=== PATIENT | female | born 1985 | race American Indian/Alaskan Native ===

== ENCOUNTER 2017-09-30 17:02 | Emergency (ER) | payer MEDICAID ==
--- NOTE | 2017-09-30 18:22 | EDM.PDOC ---
Scribed by Yamila Trevizo 09/30/17 1828 for Michi Dickey PA <Michi Dickey - Last Filed: 09/30/17 19:03> ED HPI GENERAL MEDICAL PROBLEM - General Chief Complaint: Genitourinary Problem Stated Complaint: UTI- AMBULANCE Time Seen by Provider: 09/30/17 17:45 Source of Information: Reports: Patient, RN, RN Notes Reviewed History Limitations: Reports: No Limitations - History of Present Illness INITIAL COMMENTS - FREE TEXT/NARRATIVE: Patient presents to ER with nausea and vomiting yesterday and x1 today. She has headaches and fever. She is taking Ibuprofen this a.m. No clinic visit. Onset Date: 09/29/17 Duration: Getting Worse Quality: Reports: Ache Severity: Severe Improves with: Reports: None Worsens with: Reports: None Associated Symptoms: Reports: No Other Symptoms Right Flank Pain Score (Numeric/FACES): 5 - Related Data Allergies Allergy/AdvReac Type Severity Reaction Status Date / Time No Known Allergies Allergy Verified 09/30/17 17:10 Home Meds: Home Meds . [No Known Home Meds] 09/30/17 [History] Past Medical History - Past Health History Medical/Surgical History: Denies Medical/Surgical History HEENT History: Reports: None Genitourinary History: Reports: Hydronephrosis, Pyelonephritis, Renal Calculus, Other (See Below) Other Genitourinary History: Nephrostomy placed 11-16-2015 Other OB/BYN History: fallopian surgery and 3 NVD - Past Surgical History Male Surgical History: Reports: Kidney Stone Extraction, Renal Calculus, Ureteral Stent Social & Family History - Family History Family Medical History: Noncontributory - Living Situation & Occupation Living situation: Reports: with Significant Other Occupation: Employed ED ROS GENERAL - Review of Systems Review Of Systems: ROS reveals no pertinent complaints other than HPI. ED EXAM, RENAL/ - Physical Exam Exam: See Below Exam Limited By: No Limitations General Appearance: Alert, WD/WN, No Apparent Distress Eye Exam: Bilateral Eye: Normal Inspection Ears: Normal External Exam Nose: Normal Inspection, Normal Mucosa, No Blood Throat/Mouth: Normal Inspection, Normal Lips, Normal Teeth, Normal Gums, Normal Oropharynx, Normal Voice, No Airway Compromise Head: Atraumatic, Normocephalic Neck: Normal Inspection, Supple, Non-Tender, Full Range of Motion Respiratory/Chest: No Respiratory Distress, Lungs Clear, Normal Breath Sounds, No Accessory Muscle Use, Chest Non-Tender Cardiovascular: Normal Peripheral Pulses, Regular Rate, Rhythm, No Edema, No Gallop, No JVD, No Murmur, No Rub GI/Abdominal: Other (lower abdominal pain) (Female) Exam: Deferred Rectal (Female) Exam: Deferred Back Exam: Other (left flank pain) Extremities: Normal Inspection, Normal Range of Motion, Non-Tender, Normal Capillary Refill, No Pedal Edema Neurological: Alert, Oriented, CN II-XII Intact, Normal Cognition, Normal Gait, Normal Reflexes, No Motor/Sensory Deficits Psychiatric: Normal Affect, Normal Mood Skin Exam: Warm, Dry, Intact, Normal Color, No Rash Lymphatic: No Adenopathy Course - Vital Signs Last Recorded V/S: Last Vital Signs Temp 98.3 F 09/30/17 21:17 Pulse 91 09/30/17 21:17 Resp 18 09/30/17 21:17 BP 117/76 09/30/17 21:17 Pulse Ox 98 09/30/17 21:17 - Orders/Labs/Meds Orders: Active Orders 24 hr Category Date Time Status CULTURE BLOOD [BC] Stat Lab 09/30/17 18:28 Results CULTURE BLOOD [BC] Stat Lab 09/30/17 18:31 Results CULTURE URINE [RM] Stat Lab 09/30/17 17:06 Received TRANSFUSION REACTION [BBK] Stat Lab 09/30/17 21:30 Ordered TX RX EXTENDED WORKUP [BBK] Stat Lab 09/30/17 18:31 Results Blood Culture x2 Reflex Set [OM.PC] Stat Oth 09/30/17 18:14 Ordered Labs: Laboratory Tests 09/30/17 09/30/17 09/30/17 Range/Units 17:06 17:06 17:06 WBC (5.0-10.0) 10^3/uL RBC (4.2-5.4) 10^6/uL Hgb (12.0-16.0) g/dL Hct (37.0-47.0) % MCV (80-100) fL MCH (27.0-34.0) pg MCHC (33.0-35.0) g/dL Plt Count (150-450) 10^3/uL Neut % (Auto) (42.2-75.2) % Lymph % (Auto) (20.5-50.1) % [place] % (Auto) (2-8) % Eos % (Auto) (1.0-3.0) % Baso % (Auto) (0.0-1.0) % Add Manual Diff Neutrophils % (Manual) (42-75) % Band Neutrophils % % Lymphocytes % (Manual) (20-50) % Monocytes % (Manual) (2-8) % Platelet Estimate Hypochromasia Ovalocytes Sodium (135-145) mmol/L Potassium (3.6-5.0) mmol/L Chloride (101-111) mmol/L Carbon Dioxide (21.0-31.0) mmol/L Anion Gap BUN (7-18) mg/dL Creatinine (0.6-1.3) mg/dL Est Cr Clr Drug Dosing mL/min Estimated GFR (MDRD) BUN/Creatinine Ratio Glucose (74-105) mg/dL Lactic Acid (0.5-2.2) mmol/L Calcium (8.4-10.2) mg/dl Total Bilirubin (0.2-1.0) mg/dL AST (10-42) IU/L ALT (10-60) IU/L Alkaline Phosphatase (42-121) IU/L Total Protein (6.7-8.2) g/dl Albumin (3.2-5.5) g/dl Globulin Albumin/Globulin Ratio Urine Color Yellow (YELLOW) Urine Appearance Turbid (CLEAR) Urine pH 7.0 (5.0-9.0) Ur Specific [place] 1.020 (1.005-1.030) Urine Protein >=300 H (NEGATIVE) Urine Glucose (UA) Negative (NEGATIVE) Urine Ketones Negative (NEGATIVE) Urine Occult Blood Moderate H (NEGATIVE) Urine Nitrite Negative (NEGATIVE) Urine Bilirubin Negative (NEGATIVE) Urine Urobilinogen 0.2 (0.2-1.0) mg/dL Ur Leukocyte Esterase Large H (NEGATIVE) Urine RBC 10-20 H /HPF Urine WBC Packed H (0-5/HPF) /HPF Ur Epithelial Cells Few /HPF Amorphous Sediment Few (0/HPF) /HPF Urine Bacteria Many H (0-FEW/HPF) /HPF Urine HCG, Qual Negative Urine Opiates Screen Negative (NEGATIVE) Ur Oxycodone Screen Negative (NEGATIVE) Urine Methadone Screen Negative (NEGATIVE) Ur Barbiturates Screen Negative (NEGATIVE) U Tricyclic Antidepress Negative (NEGATIVE) Ur Phencyclidine Scrn Negative (NEGATIVE) Ur Amphetamine Screen Negative (NEGATIVE) U Methamphetamines Scrn Negative (NEGATIVE) Urine MDMA Screen Negative (NEGATIVE) U Benzodiazepines Scrn Negative (NEGATIVE) Urine Cocaine Screen Negative (NEGATIVE) U Marijuana (THC) Screen Negative (NEGATIVE) Blood Type Gel Antibody Screen Crossmatch Post-Tx Product Bld Type Tx React Gram Stain Pre-Trans Blood Type Pre-Tx Ab Screen (Gel) Pre-Trans XM Immed Spin Pre-Trans Xmatch [facility] 09/30/17 09/30/17 09/30/17 Range/Units 17:58 17:58 17:58 WBC 63.9 H* (5.0-10.0) 10^3/uL RBC 3.63 L (4.2-5.4) 10^6/uL Hgb 6.7 L* D (12.0-16.0) g/dL Hct 22.9 L (37.0-47.0) % MCV 63.1 L D (80-100) fL MCH 18.5 L (27.0-34.0) pg MCHC 29.3 L (33.0-35.0) g/dL Plt Count 675 H D (150-450) 10^3/uL Neut % (Auto) 93.8 H (42.2-75.2) % Lymph % (Auto) 2.1 L (20.5-50.1) % [place] % (Auto) 4.1 (2-8) % Eos % (Auto) 0.0 L (1.0-3.0) % Baso % (Auto) 0.0 (0.0-1.0) % Add Manual Diff Yes Neutrophils % (Manual) 90 H (42-75) % Band Neutrophils % 6 % Lymphocytes % (Manual) 3 L (20-50) % Monocytes % (Manual) 1 L (2-8) % Platelet Estimate Increased Hypochromasia 1+ slight Ovalocytes 1+ slight Sodium 132 L (135-145) mmol/L Potassium 2.4 L (3.6-5.0) mmol/L Chloride 102 (101-111) mmol/L Carbon Dioxide 18.0 L (21.0-31.0) mmol/L Anion Gap 14.4 BUN 21 H (7-18) mg/dL Creatinine 2.1 H D (0.6-1.3) mg/dL Est Cr Clr Drug Dosing 38.44 mL/min Estimated GFR (MDRD) 27 BUN/Creatinine Ratio 10.00 Glucose 90 (74-105) mg/dL Lactic Acid 1.9 (0.5-2.2) mmol/L Calcium 7.3 L (8.4-10.2) mg/dl Total Bilirubin 0.4 (0.2-1.0) mg/dL AST 16 (10-42) IU/L ALT 7 L (10-60) IU/L Alkaline Phosphatase 117 (42-121) IU/L Total Protein 7.6 (6.7-8.2) g/dl Albumin 2.6 L (3.2-5.5) g/dl Globulin 5.0 Albumin/Globulin Ratio 0.52 Urine Color (YELLOW) Urine Appearance (CLEAR) Urine pH (5.0-9.0) Ur Specific [place] (1.005-1.030) Urine Protein (NEGATIVE) Urine Glucose (UA) (NEGATIVE) Urine Ketones (NEGATIVE) Urine Occult Blood (NEGATIVE) Urine Nitrite (NEGATIVE) Urine Bilirubin (NEGATIVE) Urine Urobilinogen (0.2-1.0) mg/dL Ur Leukocyte Esterase (NEGATIVE) Urine RBC /HPF Urine WBC (0-5/HPF) /HPF Ur Epithelial Cells /HPF Amorphous Sediment (0/HPF) /HPF Urine Bacteria (0-FEW/HPF) /HPF Urine HCG, Qual Urine Opiates Screen (NEGATIVE) Ur Oxycodone Screen (NEGATIVE) Urine Methadone Screen (NEGATIVE) Ur Barbiturates Screen (NEGATIVE) U Tricyclic Antidepress (NEGATIVE) Ur Phencyclidine Scrn (NEGATIVE) Ur Amphetamine Screen (NEGATIVE) U Methamphetamines Scrn (NEGATIVE) Urine MDMA Screen (NEGATIVE) U Benzodiazepines Scrn (NEGATIVE) Urine Cocaine Screen (NEGATIVE) U Marijuana (THC) Screen (NEGATIVE) Blood Type Gel Antibody Screen Crossmatch Post-Tx Product Bld Type Tx React Gram Stain Pre-Trans Blood Type Pre-Tx Ab Screen (Gel) Pre-Trans XM Immed Spin Pre-Trans Xmatch [facility] 09/30/17 09/30/17 Range/Units 18:31 18:31 WBC (5.0-10.0) 10^3/uL RBC (4.2-5.4) 10^6/uL Hgb (12.0-16.0) g/dL Hct (37.0-47.0) % MCV (80-100) fL MCH (27.0-34.0) pg MCHC (33.0-35.0) g/dL Plt Count (150-450) 10^3/uL Neut % (Auto) (42.2-75.2) % Lymph % (Auto) (20.5-50.1) % [place] % (Auto) (2-8) % Eos % (Auto) (1.0-3.0) % Baso % (Auto) (0.0-1.0) % Add Manual Diff Neutrophils % (Manual) (42-75) % Band Neutrophils % % Lymphocytes % (Manual) (20-50) % Monocytes % (Manual) (2-8) % Platelet Estimate Hypochromasia Ovalocytes Sodium (135-145) mmol/L Potassium (3.6-5.0) mmol/L Chloride (101-111) mmol/L Carbon Dioxide (21.0-31.0) mmol/L Anion Gap BUN (7-18) mg/dL Creatinine (0.6-1.3) mg/dL Est Cr Clr Drug Dosing mL/min Estimated GFR (MDRD) BUN/Creatinine Ratio Glucose (74-105) mg/dL Lactic Acid (0.5-2.2) mmol/L Calcium (8.4-10.2) mg/dl Total Bilirubin (0.2-1.0) mg/dL AST (10-42) IU/L ALT (10-60) IU/L Alkaline Phosphatase (42-121) IU/L Total Protein (6.7-8.2) g/dl Albumin (3.2-5.5) g/dl Globulin Albumin/Globulin Ratio Urine Color (YELLOW) Urine Appearance (CLEAR) Urine pH (5.0-9.0) Ur Specific [place] (1.005-1.030) Urine Protein (NEGATIVE) Urine Glucose (UA) (NEGATIVE) Urine Ketones (NEGATIVE) Urine Occult Blood (NEGATIVE) Urine Nitrite (NEGATIVE) Urine Bilirubin (NEGATIVE) Urine Urobilinogen (0.2-1.0) mg/dL Ur Leukocyte Esterase (NEGATIVE) Urine RBC /HPF Urine WBC (0-5/HPF) /HPF Ur Epithelial Cells /HPF Amorphous Sediment (0/HPF) /HPF Urine Bacteria (0-FEW/HPF) /HPF Urine HCG, Qual Urine Opiates Screen (NEGATIVE) Ur Oxycodone Screen (NEGATIVE) Urine Methadone Screen (NEGATIVE) Ur Barbiturates Screen (NEGATIVE) U Tricyclic Antidepress (NEGATIVE) Ur Phencyclidine Scrn (NEGATIVE) Ur Amphetamine Screen (NEGATIVE) U Methamphetamines Scrn (NEGATIVE) Urine MDMA Screen (NEGATIVE) U Benzodiazepines Scrn (NEGATIVE) Urine Cocaine Screen (NEGATIVE) U Marijuana (THC) Screen (NEGATIVE) Blood Type O POSITIVE Gel Antibody Screen Negative Crossmatch See Detail Post-Tx Product Bld Type O POSITIVE Tx React Gram Stain No organism seen. Pre-Trans Blood Type O positive Pre-Tx Ab Screen (Gel) Negative Pre-Trans XM Immed Spin Compatible Pre-Trans Xmatch [facility] Compatible Meds: Medications Discontinued Medications Generic Name Dose Route Start Last Admin Trade Name Freq PRN Reason Stop Dose Admin Ceftriaxone Sodium 1 gm 09/30/17 19:47 09/30/17 20:16 Rocephin IVPUSH 09/30/17 19:48 Not Given ONETIME ONE Ceftriaxone Sodium 2 gm 09/30/17 19:57 09/30/17 20:32 Rocephin IVPUSH 09/30/17 19:58 2 gm ONETIME ONE Administration Diphenhydramine HCl 50 mg 09/30/17 21:20 09/30/17 21:21 Benadryl IVPUSH 09/30/17 21:21 50 mg ONETIME ONE Administration Diphenhydramine HCl Confirm 09/30/17 21:20 Benadryl Administered 09/30/17 21:21 Dose 50 mg .ROUTE .STK-MED ONE Hydromorphone HCl 0.5 mg 09/30/17 18:45 09/30/17 18:54 Dilaudid IVPUSH 09/30/17 18:46 0.5 mg ONETIME ONE Administration Hydromorphone HCl 0.5 mg 09/30/17 20:23 09/30/17 20:31 Dilaudid IVPUSH 09/30/17 20:24 0.5 mg ONETIME ONE Administration Potassium Chloride 20 meq/ 100 mls @ 50 mls/hr 09/30/17 18:43 09/30/17 18:54 Premix IV 09/30/17 20:42 50 mls/hr ONETIME ONE Administration Potassium Chloride Confirm 09/30/17 18:48 09/30/17 18:51 Kcl 10 Meq In Water 100 Ml Administered 09/30/17 18:49 Not Given Dose 200 mls @ as directed .ROUTE .STK-MED ONE Ondansetron HCl 4 mg 09/30/17 20:38 09/30/17 20:41 Zofran IV 09/30/17 20:39 4 mg ONETIME ONE Administration Ondansetron HCl Confirm 09/30/17 20:39 09/30/17 20:46 Zofran Administered 09/30/17 20:40 4 mg Dose Administration 4 mg .ROUTE .STK-MED ONE Departure - Departure Disposition: DC/Tfer to [facility] Clinical Impression: Flank pain, History of calculus of kidney, Obstructive uropathy, Pyelonephritis , Enlarged gallbladder, Hypokalemia Cholelithiases Qualifiers: Cholelithiasis location: other site Biliary obstruction: without biliary obstruction Qualified Code(s): K80.80 - Other cholelithiasis without obstruction Anemia Qualifiers: Anemia type: unspecified type Qualified Code(s): D64.9 - Anemia, unspecified - Discharge Information Referrals: Maurilio Feliciano [Primary Care Provider] - Forms: ED Department Discharge - My Orders Last 24 Hours: My Active Orders 09/30/17 17:06 CULTURE URINE [RM] Stat - Assessment/Plan Last 24 Hours: My Active Orders 09/30/17 17:06 CULTURE URINE [RM] Stat <Nichol Valdez - Last Filed: 10/01/17 03:02> Course - Re-Assessments/Exams Free Text/Narrative Re-Assessment/Exam: 10/01/17 02:58 Dr Moraes accepting of patient in tranxfer. Recommendation to initiate PRBC. Reaction to first unit prior to tx. Blood products discontinued and patient givin Benadryl for itching. Vitals stable, no airway compromise. Departure - Departure Time of Disposition: 21:30 Condition: Fair I have read and agree with the documentation that has been completed regarding this visit. By signing this record, I attest that the documentation was completed in my physical presence and is an accurate record of the encounter.
[2017-09-30] MEDS ORDERED: Potassium Chloride 20 MEQ in Premix Bag 1 BAG IV ONE (18:43)
[2017-09-30] MEDS ORDERED: HYDROmorphone 0.5 MG/0.5 ML Syringe IVPUSH ONE ×2 (18:45→20:23)
[2017-09-30] MEDS ORDERED: cefTRIAXone 1 GM Vial IVPUSH ONE (19:47)
[2017-09-30] MEDS ORDERED: cefTRIAXone 2 GM Vial IVPUSH ONE (19:57)
[2017-09-30] MEDS ORDERED: Ondansetron 4 MG/2 ML SDV IV ONE (20:38)
[2017-09-30] MEDS ORDERED: Ondansetron 4 MG/2 ML SDV ONE (20:39)
[2017-09-30 21:19] VITALS: BP 117/76
[2017-09-30] MEDS ORDERED: diphenhydrAMINE 50 MG/ML SDV ONE (21:20)
[2017-09-30] MEDS ORDERED: diphenhydrAMINE 50 MG/ML SDV IVPUSH ONE (21:20)
== END 2017-09-30 21:33 ==
LOC: DL.ED 17:02
DX: N13.2 Hydronephrosis with renal and ureteral calculous obstruction (principal); E87.6 Hypokalemia; K80.80 Other cholelithiasis without obstruction; D64.9 Anemia, unspecified
CPT/HCPCS: 36415; 36430; 74176; 80053; 80305; 81001; 81025; 83605; 85025; 86850; 86900; 86901; 86920; 86922; 87040; 87086; 96365; 96366; 96374; 96375; 99285; J0696; J1170; J1200; J2405; J3480; P9016

== ENCOUNTER 2018-12-28 23:27 | Emergency (ER) | payer SELFPAY ==
[2018-12-28] MEDS ORDERED: Sodium Chloride 0.9% 1,000 ML IV ONE (23:32)
[2018-12-28] MEDS ORDERED: HYDROmorphone 1 MG/ML Syringe IVPUSH ONE ×2 (23:32→23:54)
[2018-12-28 23:33] VITALS: BP 94/75; PULSE 63
[2018-12-28] MEDS ORDERED: LORazepam 2 MG/ML Syringe IVPUSH ONE (23:41)
--- NOTE | 2018-12-28 23:41 | EDM.PDOC ---
"ED HPI GENERAL MEDICAL PROBLEM - General Chief Complaint: Abdominal Pain Stated Complaint: AMBULANCE Time Seen by Provider: 12/28/18 23:34 Source of Information: Reports: Patient, EMS History Limitations: Reports: No Limitations - History of Present Illness INITIAL COMMENTS - FREE TEXT/NARRATIVE: ED with c/o severe pain, points epigastric and left side upper and lower, Sudden onset around 7pm, last ate 4-5 pm, mac and cheese. EMS note no vomiting but dry heaves on arrival. No reported fever or chills. Denies urinary complaints, Last BM this afternoon. No flank pain, No cough, cold sx. Left Upper Abdomen Pain Score (Numeric/FACES): 10 - Related Data Allergies Allergy/AdvReac Type Severity Reaction Status Date / Time No Known Allergies Allergy Verified 12/28/18 23:46 Home Meds: Home Meds . [No Known Home Meds] 09/30/17 [History] Past Medical History - Past Health History Medical/Surgical History: Denies Medical/Surgical History HEENT History: Reports: None Genitourinary History: Reports: Hydronephrosis, Pyelonephritis, Renal Calculus, Other (See Below) Other Genitourinary History: Nephrostomy placed 11-16-2015 Other HOUSE MOVER History: fallopian surgery and 3 NVD - Past Surgical History Male Surgical History: Reports: Kidney Stone Extraction, Renal Calculus, Ureteral Stent Social & Family History - Family History Family Medical History: Noncontributory - Living Situation & Occupation Living situation: Reports: with Significant Other Occupation: Employed ED ROS GENERAL - Review of Systems Review Of Systems: ROS reveals no pertinent complaints other than HPI. ED EXAM, GI/ABD - Physical Exam Exam: See Below Exam Limited By: No Limitations General Appearance: Alert, Anxious, Moderate Distress, Thin Eyes: Bilateral: EOMI Ears: Normal External Exam Nose: Normal Mucosa Throat/Mouth: Normal Lips, Normal Voice Head: Atraumatic, Normocephalic Neck: Normal Inspection Respiratory/Chest: No Respiratory Distress Cardiovascular: Regular Rate, Rhythm, No Edema GI/Abdominal Exam: Soft, Guarding, Tender (epigastric and left upper and lower) , Abnormal Bowel Sounds (hypoactive). No: Distended, Rigid, Rebound Back Exam: No: CVA Tenderness (L), CVA Tenderness (R), Decreased Range of Motion Extremities: Normal Inspection, Normal Range of Motion Neurological: Alert, Oriented, Normal Cognition Psychiatric: Anxious Skin Exam: Warm, Dry, Intact, Pallor, Tattoo(s) Course - Vital Signs Last Recorded V/S: Last Vital Signs Temp 96.9 F 12/28/18 23:29 Pulse 63 12/28/18 23:29 Resp 19 12/28/18 23:29 BP 94/75 12/28/18 23:29 Pulse Ox 100 12/28/18 23:29 - Orders/Labs/Meds Orders: Active Orders 24 hr Category Date Time Status Abdomen Pelvis w Cont [CT] Urgent Exams 12/29/18 00:15 Taken CULTURE BLOOD [BC] Stat Lab 12/28/18 23:51 Received CULTURE URINE [RM] Stat Lab 12/29/18 01:53 Received NG [Nasogastric Orogastric Tube Insertion] [OM.PC] Oth 12/29/18 02:07 Ordered Routine Labs: Laboratory Tests 12/28/18 12/28/18 12/28/18 Range/Units 23:51 23:51 23:51 WBC 8.0 (5.0-10.0) 10^3/uL RBC 4.34 (4.2-5.4) 10^6/uL Hgb 8.5 L D (12.0-16.0) g/dL Hct 30.0 L (37.0-47.0) % MCV 69.1 L D (80-100) fL MCH 19.6 L (27.0-34.0) pg MCHC 28.3 L (33.0-35.0) g/dL Plt Count 397 D (150-450) 10^3/uL Neut % (Auto) 59.0 (42.2-75.2) % Lymph % (Auto) 29.6 (20.5-50.1) % Gilmer % (Auto) 6.8 (2-8) % Eos % (Auto) 4.3 H (1.0-3.0) % Baso % (Auto) 0.3 (0.0-1.0) % Sodium 138 (135-145) mmol/L Potassium 2.9 L (3.6-5.0) mmol/L Chloride 108 (101-111) mmol/L Carbon Dioxide 23.0 (21.0-31.0) mmol/L Anion Gap 9.9 BUN 7 (7-18) mg/dL Creatinine 0.7 D (0.6-1.3) mg/dL Est Cr Clr Drug Dosing 114.23 mL/min Estimated GFR (MDRD) > 60 BUN/Creatinine Ratio 10.00 Glucose 109 H (74-105) mg/dL Lactic Acid 2.3 H (0.5-2.2) mmol/L Calcium 8.2 L (8.4-10.2) mg/dl Total Bilirubin 0.6 (0.2-1.0) mg/dL AST 37 (10-42) IU/L ALT 39 (10-60) IU/L Alkaline Phosphatase 124 H (42-121) IU/L Total Protein 7.3 (6.7-8.2) g/dl Albumin 3.5 (3.2-5.5) g/dl Globulin 3.8 Albumin/Globulin Ratio 0.92 Amylase 72 (28-100) U/L Lipase 28 (22-51) U/L HCG, Qual Negative Urine Color (YELLOW) Urine Appearance (CLEAR) Urine pH (5.0-9.0) Ur Specific [place] (1.005-1.030) Urine Protein (NEGATIVE) Urine Glucose (UA) (NEGATIVE) Urine Ketones (NEGATIVE) Urine Occult Blood (NEGATIVE) Urine Nitrite (NEGATIVE) Urine Bilirubin (NEGATIVE) Urine Urobilinogen (0.2-1.0) mg/dL Ur Leukocyte Esterase (NEGATIVE) Urine RBC /HPF Urine WBC (0-5/HPF) /HPF Ur Epithelial Cells (NOT SEEN) /HPF Urine Bacteria (0-FEW/HPF) /HPF Urine Mucus (NOT SEEN) /LPF Urine Opiates Screen (NEGATIVE) Ur Oxycodone Screen (NEGATIVE) Urine Methadone Screen (NEGATIVE) Ur Barbiturates Screen (NEGATIVE) U Tricyclic Antidepress (NEGATIVE) Ur Phencyclidine Scrn (NEGATIVE) Ur Amphetamine Screen (NEGATIVE) U Methamphetamines Scrn (NEGATIVE) Urine MDMA Screen (NEGATIVE) U Benzodiazepines Scrn (NEGATIVE) Urine Cocaine Screen (NEGATIVE) U Marijuana (THC) Screen (NEGATIVE) 12/29/18 12/29/18 Range/Units 01:53 01:53 WBC (5.0-10.0) 10^3/uL RBC (4.2-5.4) 10^6/uL Hgb (12.0-16.0) g/dL Hct (37.0-47.0) % MCV (80-100) fL MCH (27.0-34.0) pg MCHC (33.0-35.0) g/dL Plt Count (150-450) 10^3/uL Neut % (Auto) (42.2-75.2) % Lymph % (Auto) (20.5-50.1) % Gilmer % (Auto) (2-8) % Eos % (Auto) (1.0-3.0) % Baso % (Auto) (0.0-1.0) % Sodium (135-145) mmol/L Potassium (3.6-5.0) mmol/L Chloride (101-111) mmol/L Carbon Dioxide (21.0-31.0) mmol/L Anion Gap BUN (7-18) mg/dL Creatinine (0.6-1.3) mg/dL Est Cr Clr Drug Dosing mL/min Estimated GFR (MDRD) BUN/Creatinine Ratio Glucose (74-105) mg/dL Lactic Acid (0.5-2.2) mmol/L Calcium (8.4-10.2) mg/dl Total Bilirubin (0.2-1.0) mg/dL AST (10-42) IU/L ALT (10-60) IU/L Alkaline Phosphatase (42-121) IU/L Total Protein (6.7-8.2) g/dl Albumin (3.2-5.5) g/dl Globulin Albumin/Globulin Ratio Amylase (28-100) U/L Lipase (22-51) U/L HCG, Qual Urine Color Yellow (YELLOW) Urine Appearance Cloudy (CLEAR) Urine pH 6.0 (5.0-9.0) Ur Specific [place]rard 1.015 (1.005-1.030) Urine Protein Negative (NEGATIVE) Urine Glucose (UA) Negative (NEGATIVE) Urine Ketones Trace H (NEGATIVE) Urine Occult Blood Small H (NEGATIVE) Urine Nitrite Positive H (NEGATIVE) Urine Bilirubin Negative (NEGATIVE) Urine Urobilinogen 0.2 (0.2-1.0) mg/dL Ur Leukocyte Esterase Small H (NEGATIVE) Urine RBC 5-10 H /HPF Urine WBC 10-20 H (0-5/HPF) /HPF Ur Epithelial Cells Few (NOT SEEN) /HPF Urine Bacteria Many H (0-FEW/HPF) /HPF Urine Mucus Few H (NOT SEEN) /LPF Urine Opiates Screen Positive H (NEGATIVE) Ur Oxycodone Screen Negative (NEGATIVE) Urine Methadone Screen Negative (NEGATIVE) Ur Barbiturates Screen Negative (NEGATIVE) U Tricyclic Antidepress Negative (NEGATIVE) Ur Phencyclidine Scrn Negative (NEGATIVE) Ur Amphetamine Screen Positive H (NEGATIVE) U Methamphetamines Scrn Positive H (NEGATIVE) Urine MDMA Screen Negative (NEGATIVE) U Benzodiazepines Scrn Negative (NEGATIVE) Urine Cocaine Screen Negative (NEGATIVE) U Marijuana (THC) Screen Negative (NEGATIVE) Meds: Medications Discontinued Medications Generic Name Dose Route Start Last Admin Trade Name Freq PRN Reason Stop Dose Admin Fentanyl 50 mcg 12/29/18 01:39 12/29/18 02:16 Sublimaze IVPUSH 12/29/18 01:40 50 mcg ONETIME ONE Administration Hydromorphone HCl 1 mg 12/28/18 23:32 12/28/18 23:39 Dilaudid IVPUSH 12/28/18 23:33 1 mg ONETIME ONE Administration Hydromorphone HCl 1 mg 12/28/18 23:54 12/28/18 23:58 Dilaudid IVPUSH 12/28/18 23:55 1 mg ONETIME ONE Administration Sodium Chloride 1,000 mls @ 999 mls/hr 12/28/18 23:32 12/28/18 23:39 Normal Saline IV 12/29/18 00:32 999 mls/hr .BOLUS ONE Administration Potassium Chloride 20 meq/ 100 mls @ 50 mls/hr 12/29/18 00:22 12/29/18 00:50 Premix IV 12/29/18 02:21 50 mls/hr ONETIME ONE Administration Iopamidol 75 ml 12/29/18 00:21 12/29/18 00:52 Isovue-300 (61%) IVPUSH 12/29/18 00:22 75 ml ONETIME ONE Administration Lorazepam 1 mg 12/28/18 23:41 12/28/18 23:46 Ativan IVPUSH 12/28/18 23:42 1 mg ONETIME ONE Administration Metoclopramide HCl 10 mg 12/29/18 02:19 12/29/18 02:23 Reglan IVPUSH 12/29/18 02:20 10 mg ONETIME ONE Administration - Radiology Interpretation Free Text/Narrative:: [facility] [place] [facility] Final Radiology Report Call: [phone] assistance Online chat: [email or web address] Name: NARDA WEBSTER Age: 33Years F Date: 12/29/2018 SSN: -- : [id number] Study: CT ABDOMEN/PELVIS W Requesting Physician: LIDIA CORTEZ Images: [id number] Addl Studies: Provided Clinical History: Contrast: With Contrast Medium: Iso 300 Contrast Amount: 75 mL Contrast Method: R hand 20g Page 1 of 2 PROCEDURE INFORMATION: Exam: CT Abdomen and Pelvis With Contrast Exam date and time: 12/29/2018 12:29 AM Clinical history: 33 years old, female; Other: Epigastric, left upper and lower abdomen pain TECHNIQUE: Imaging protocol: Computed tomography of the abdomen and pelvis with intravenous contrast. Radiation optimization: All CT scans at this facility use at least one of these dose optimization techniques: automated exposure control; mA and/or kV adjustment per patient size (includes targeted exams where dose is matched to clinical indication); or iterative reconstruction. Contrast material: ISO 300; Contrast volume: 75 ml; Contrast route: R HAND 20G; COMPARISON: CT Abdomen Pelvis wo Cont 09/30/2017 6:59 PM FINDINGS: Lungs: Severe bronchial wall thickening in the lingula is probably present. Liver: The liver is normal in architecture, without suspicious abnormality. Gallbladder and bile ducts: Gallbladder containing multiple gallstones. Pancreas: The pancreatic parenchyma is normal in bulk and sharply marginated. Duct is not dilated. No calcifications, masses, or abnormal fluid collections. Spleen: Spleen is normal in size. No mass or fluid collection. Adrenals: There are no adrenal masses. Kidneys and ureters: Mild right renal atrophy. Right hydroureteronephrosis. No stone. Stomach and bowel: Distal small bowel is dilated. Terminal ileum is decompressed. Cecum is dilated to 9 cm. Appendix: No evidence of appendicitis. Intraperitoneal space: There is a small amount of ascites. Mesenteric edema and distortion. Vasculature: Unremarkable. No abdominal aortic aneurysm. NARDA WEBSTER | Final Radiology Report CONFIDENTIALITY STATEMENT This report is intended only for use by the referring physician, and only in accordance with law. If you received this in error, call [phone]. Page 2 of 2 Lymph nodes: Unremarkable. No enlarged lymph nodes. Bladder: Unremarkable as visualized. Reproductive: Unremarkable as visualized. Bones/joints: Age appropriate. No acute fracture. No dislocation. Soft tissues: Unremarkable. 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 Thank you for allowing us to participate in the care of your patient. Dictated and Authenticated by: Dre Casarez MD 12/29/2018 1:36 AM Central Time ([place] & [place]) - Re-Assessments/Exams Free Text/Narrative Re-Assessment/Exam: 12/29/18 02:04 Patient resting, reports pain some better, TC Dr Parker, , Alessandro and Dr Warner Odell. Dr Hylton Surgeon accepting patient. Tx via [facility]. 12/29/18 02:27 NG placement attempted without success. 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 Abdominal pain Qualifiers: Abdominal location: unspecified location Qualified Code(s): R10.9 - Unspecified abdominal pain Anemia Qualifiers: Anemia type: unspecified type Qualified Code(s): D64.9 - Anemia, unspecified - Discharge Information *PRESCRIPTION DRUG MONITORING PROGRAM REVIEWED*: Not Applicable *COPY OF PRESCRIPTION DRUG MONITORING REPORT IN PATIENT PUSHPA: Not Applicable Forms: ED Department Discharge - My Orders Last 24 Hours: My Active Orders 12/28/18 23:51 CULTURE BLOOD [BC] Stat 12/29/18 00:15 Abdomen Pelvis w Cont [CT] Urgent 12/29/18 01:53 CULTURE URINE [RM] Stat 12/29/18 02:07 NG [Nasogastric Orogastric Tube Insertion] [OM.PC] Routine - Assessment/Plan Last 24 Hours: My Active Orders 12/28/18 23:51 CULTURE BLOOD [BC] Stat 12/29/18 00:15 Abdomen Pelvis w Cont [CT] Urgent 12/29/18 01:53 CULTURE URINE [RM] Stat 12/29/18 02:07 NG [Nasogastric Orogastric Tube Insertion] [OM.PC] Routine"
[2018-12-29 00:18] LABS: ANION GAP 9.9; CHLORIDE,CL 108 mmol/L (101-111); SODIUM,NA 138 mmol/L (135-145)
[2018-12-29] MEDS ORDERED: Iopamidol 612 MG/ML 75 ML Bottle IVPUSH ONE (00:21)
[2018-12-29] MEDS ORDERED: Potassium Chloride 20 MEQ in Premix Bag 1 BAG IV ONE (00:22)
[2018-12-29] MEDS ORDERED: fentaNYL 100 MCG/2 ML SDV IVPUSH ONE (01:39)
[2018-12-29] MEDS ORDERED: Metoclopramide 10 MG/2 ML SDV IVPUSH ONE (02:19)
== END 2018-12-29 02:30 ==
LOC: DL.ED 23:27
DX: K56.2 Volvulus (principal); R10.13 Epigastric pain; R10.12 Left upper quadrant pain; R82.5 Elevated urine levels of drugs, medicaments and biological substances; D64.9 Anemia, unspecified
CPT/HCPCS: 36415; 74177; 80053; 80305-QW; 81001; 82150; 83605; 83690; 84703; 85025; 87040; 87086; 87088; 87186; 96361; 96365; 96366; 96375; 99285-25; J1170; J2060; J2765; J3010; J3480; J7030; Q9967

== ENCOUNTER 2020-12-02 14:09 | Emergency (ER) | payer SELFPAY ==
[2020-12-02] MEDS ORDERED: GI Cocktail Oral Solution 30 ML PO ONE (15:38)
[2020-12-02] MEDS ORDERED: Iopamidol 612 MG/ML 100 ML Bottle IVPUSH ONE (16:33)
[2020-12-02] MEDS ORDERED: cefTRIAXone 1 GM in Sodium Chloride 0.9% 50 ML IV ONE (16:43)
[2020-12-02 16:50] LABS: ANION GAP 18.6 mEq/L (7-13); CHLORIDE,CL 102 mmol/L (98-107); SODIUM,NA 139 mmol/L (136-145)
--- NOTE | 2020-12-02 18:36 | EDM.PDOC ---
Scribed by Yamila Trevizo 12/02/20 1836 for Susanna Lechuga NP <Susanna Lechuga - Last Filed: 12/02/20 18:48> ED HPI GENERAL MEDICAL PROBLEM - General Chief Complaint: Abdominal Pain Stated Complaint: IN BY AMBULANCE Time Seen by Provider: 12/02/20 15:35 Source of Information: Reports: Patient, EMS, EMS Notes Reviewed, RN, RN Notes Reviewed History Limitations: Reports: No Limitations - History of Present Illness INITIAL COMMENTS - FREE TEXT/NARRATIVE: Patient is a 35-year-old female who presents to ER with complaint of epigastric pain radiating to chest that began 3 days ago. Has been taking ibuprofen for the pain. The pain is getting worse. She began vomiting last night. Specks of blood noted in emesis. She rates her pain 10/10 comes in waves. Her last bowel movement last night was normal. She is currently having menses. She had drainage from umbilicus x1 month. She has had chills, nausea and vomiting. She uses marijuana use. No fever or diarrhea. Patient quit drinking 1 year ago. She was a heavy drinker prior. She denies history of pancreatitis. She had a history of volvulus 1 year ago. Onset: Gradual Duration: Getting Worse Location: Reports: Abdomen Quality: Reports: Ache Severity: Severe Improves with: Reports: None Worsens with: Reports: None Associated Symptoms: Reports: No Other Symptoms Abdomen Pain Score (Numeric/FACES): 7 - Related Data Allergies Allergy/AdvReac Type Severity Reaction Status Date / Time No Known Allergies Allergy Verified 12/28/18 23:46 Home Meds: Home Meds . 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 - Past Surgical History GI Surgical History: Reports: Small Bowel Social & Family History - Family History Family Medical History: No Pertinent Family History - Tobacco Use Tobacco Use Status *Q: Current Every Day Tobacco User Years of Tobacco use: 20 Packs/Tins Daily: 1 - Caffeine Use Caffeine Use: Reports: Coffee, Soda - Recreational Drug Use Recreational Drug Use: Yes Recreational Drug Type: Reports: Marijuana/Hashish - Living Situation & Occupation Living situation: Reports: with Significant Other Occupation: Employed ED ROS GENERAL - Review of Systems Review Of Systems: Comprehensive ROS is negative, except as noted in HPI. ED EXAM, GI/ABD - Physical Exam Exam: See Below Exam Limited By: No Limitations General Appearance: Alert, WD/WN, No Apparent Distress Eyes: Bilateral: Normal Appearance Ears: Normal External Exam, Normal Canal, Hearing Grossly Normal, Normal TMs Nose: Normal Inspection, Normal Mucosa, No Blood Throat/Mouth: Normal Inspection, Normal Lips, Normal Teeth, Normal Gums, Normal Oropharynx, Normal Voice, No Airway Compromise Head: Atraumatic, Normocephalic Neck: Normal Inspection, Supple, Non-Tender, Full Range of Motion Respiratory/Chest: No Respiratory Distress, Lungs Clear, Normal Breath Sounds, No Accessory Muscle Use, Chest Non-Tender Cardiovascular: Normal Peripheral Pulses, Regular Rate, Rhythm, No Edema, No Gallop, No JVD, No Murmur, No Rub GI/Abdominal Exam: Tender (generalized) (Female) Exam: Deferred Rectal (Female) Exam: Deferred Back Exam: Normal Inspection, Full Range of Motion, NT Extremities: Normal Inspection, Normal Range of Motion, Non-Tender, Normal Capillary Refill, No Pedal Edema Neurological: Alert, Oriented, CN II-XII Intact, Normal Cognition, Normal Gait, Normal Reflexes, No Motor/Sensory Deficits Psychiatric: Normal Affect, Normal Mood Skin Exam: Warm, Dry, Intact, Normal Color, No Rash Lymphatic: No Adenopathy Course - Radiology Interpretation Free Text/Narrative:: CT Abdomen/Pelvis with contrast: PROCEDURE INFORMATION: Exam: CT Abdomen And Pelvis With Contrast Exam date and time: 12/02/2020 4:59 PM Age: 35 years old Clinical indication: Other: Pain; Additional info: HX cecum volvulus, hgb 5.2 TECHNIQUE: Imaging protocol: Computed tomography of the abdomen and pelvis with contrast. Radiation optimization: All CT scans at this facility use at least one of these dose optimization techniques: automated exposure control; mA and/or kV adjustment per patient size (includes targeted exams where dose is matched to clinical indication); or iterative reconstruction. Contrast material: [id number]; Contrast volume: 75 ml; Contrast route: INTRAVENOUS (IV); COMPARISON: Prior CT abdomen and pelvis of 12/29/2018 FINDINGS: Lungs: No significant abnormality in the visualized lung bases. Liver: No significant abnormality. Gallbladder and bile ducts: Multiple large radiolucent gallstones, filling the gallbladder lumen. Mild gallbladder dilatation. No CT evidence of acute cholecystitis. Pancreas: No significant abnormality. Spleen: No significant abnormality. Adrenal glands: No significant abnormality. Kidneys and ureters: Right renal scarring and atrophy. Simple-appearing low density lesion in the right kidney, most likely a benign renal cyst. No followup is necessary, based on the imaging findings. See comment below. Tiny, nonobstructing left renal stone. Stomach and bowel: Best seen on image 21 of series 3, there is a 1.4 cm round collection of air in the left abdomen. This abuts the distal stomach superiorly, and is suspicious for a distal gastric ulcer. There is abnormal infiltration of the adjacent fat and nearby gastric wall thickening. Findings are highly suspicious for an inflamed gastric ulcer. No free air seen to suggest a jesus gastric perforation. Evidence of prior right hemicolectomy, with an enterocolic anastomosis in the left abdomen. No evidence of significant bowel obstruction. Appendix: Surgically removed. Intraperitoneal space: Tiny amount of free fluid in the cul-de-sac. This is most likely physiologic in nature. No evidence of free air. Vasculature: No acute abnormality. Lymph nodes: No evidence of diffuse pathologic lymphadenopathy. Urinary bladder: Mild, diffuse bladder wall thickening. Reproductive: 2 cm lesion with a thin, enhancing and collapsed soft tissue rim in the left ovary. This has an appearance suggestive of a recently ruptured/involuting ovarian cyst, such as a corpus luteal cyst. This is likely an incidental finding. Followup pelvic ultrasound as clinically indicated. Bones/joints: Bony structures appear demineralized. Soft tissues: No acute abnormality. IMPRESSION: 1. Findings highly suspicious for an inflamed 1.4 cm distal gastric ulcer. No free air to suggest a gastric perforation. 2. Mild bladder wall thickening. This is a nonspecific finding, but can be seen with cystitis. 3. Otherwise, no significant acute abnormality. 4. Stone-filled gallbladder, with no evidence of acute cholecystitis. 5. See below for remaining findings. COMMENTS: Consistent with the [employer]'s Incidental Findings Committee white paper (J Am Zaira Radiol 2018): Any incidental renal lesion less than 1 cm or classified as too small to characterize, or any incidental cystic renal lesion characterized as simple- appearing, is likely benign. No follow-up imaging is recommended for these lesions per consensus recommendations based on imaging criteria. Thank you for allowing us to participate in the care of your patient. Dictated and Authenticated by: Nelly Cristobal MD 12/02/2020 6:34 PM Central Time ([place] & [place]) See rad report Departure - Departure Disposition: DC/Tfer to [facility] 02 Clinical Impression: GI bleed Qualifiers: GI bleed type/associated pathology: gastric ulcer Qualified Code(s): K25.4 - Chronic or unspecified gastric ulcer with hemorrhage - Discharge Information Forms: ED Department Discharge <Irasema Sanon - Last Filed: 12/02/20 19:56> Course - Vital Signs Last Recorded V/S: Last Vital Signs Temp 98.4 F 12/02/20 18:47 Pulse 71 12/02/20 18:47 Resp 16 12/02/20 18:47 BP 145/75 H 12/02/20 18:47 Pulse Ox 100 12/02/20 14:36 - Orders/Labs/Meds Orders: Active Orders 24 hr Category Date Time Status CULTURE URINE [RM] Stat Lab 12/02/20 15:03 Received RED BLOOD CELLS LP [BBK] Stat Lab 12/02/20 16:35 Results TYPE AND SCREEN [BBK] Stat Lab 12/02/20 16:35 Results Transfuse Red Blood Cells [COMM] Stat Oth 12/02/20 16:25 Ordered Labs: Laboratory Tests 12/02/20 12/02/20 12/02/20 Range/Units 15:03 15:03 16:07 WBC 7.5 (5.0-10.0) 10^3/uL RBC 3.48 L (4.2-5.4) 10^6/uL Hgb 5.2 L* D (12.0-16.0) g/dL Hct 21.0 L (37.0-47.0) % MCV 60.3 L D (80-100) fL MCH 14.9 L (27.0-34.0) pg MCHC 24.8 L (33.0-35.0) g/dL Plt Count 264 D (150-450) 10^3/uL Neut % (Auto) 63.4 (42.2-75.2) % Lymph % (Auto) 25.5 (20.5-50.1) % Guthrie % (Auto) 6.0 (2-8) % Eos % (Auto) 4.7 H (1.0-3.0) % Baso % (Auto) 0.4 (0.0-1.0) % Sodium (136-145) mmol/L Potassium (3.5-5.1) mmol/L Chloride (98-107) mmol/L Carbon Dioxide (21-32) mmol/L Anion Gap (7-13) mEq/L BUN (7-18) mg/dL Creatinine (0.55-1.02) mg/dL Est Cr Clr Drug Dosing mL/min Estimated GFR (MDRD) BUN/Creatinine Ratio (No establ ref range) Glucose (70-99) mg/dL Calcium (8.5-10.1) mg/dL Total Bilirubin (0.2-1.0) mg/dL AST (15-37) U/L ALT (14-59) U/L Alkaline Phosphatase (46-116) U/L Total Protein (6.4-8.2) g/dL Albumin (3.4-5.0) g/dL Globulin Albumin/Globulin Ratio Urine Color Dark yellow (YELLOW) Urine Appearance Cloudy (CLEAR) Urine pH 6.0 (5.0-9.0) Ur Specific [place] 1.020 (1.005-1.030) Urine Protein 100 H (NEGATIVE) Urine Glucose (UA) Negative (NEGATIVE) Urine Ketones 15 H (NEGATIVE) Urine Occult Blood Large H (NEGATIVE) Urine Nitrite Positive H (NEGATIVE) Urine Bilirubin Negative (NEGATIVE) Urine Urobilinogen 0.2 (0.2-1.0) mg/dL Ur Leukocyte Esterase Small H (NEGATIVE) Urine RBC Packed H (0-5) /HPF Urine WBC 10-20 H (0-5/HPF) /HPF Ur Epithelial Cells Moderate H (NOT SEEN) /HPF Urine Bacteria Moderate H (0-FEW/HPF) /HPF Urine Mucus Few H (NOT SEEN) /LPF Urine HCG, Qual Negative SARS-CoV-2 RNA (TAMIKO) (NEGATIVE) Blood Type Gel Antibody Screen Crossmatch 12/02/20 12/02/20 12/02/20 Range/Units 16:07 16:35 17:49 WBC (5.0-10.0) 10^3/uL RBC (4.2-5.4) 10^6/uL Hgb (12.0-16.0) g/dL Hct (37.0-47.0) % MCV (80-100) fL MCH (27.0-34.0) pg MCHC (33.0-35.0) g/dL Plt Count (150-450) 10^3/uL Neut % (Auto) (42.2-75.2) % Lymph % (Auto) (20.5-50.1) % [place]uthrie % (Auto) (2-8) % Eos % (Auto) (1.0-3.0) % Baso % (Auto) (0.0-1.0) % Sodium 139 (136-145) mmol/L Potassium 3.6 (3.5-5.1) mmol/L Chloride 102 (98-107) mmol/L Carbon Dioxide 22 (21-32) mmol/L Anion Gap 18.6 H (7-13) mEq/L BUN 13 (7-18) mg/dL Creatinine 0.77 (0.55-1.02) mg/dL Est Cr Clr Drug Dosing 87.22 mL/min Estimated GFR (MDRD) > 60 BUN/Creatinine Ratio 16.9 (No establ ref range) Glucose 91 (70-99) mg/dL Calcium 8.4 L (8.5-10.1) mg/dL Total Bilirubin 0.6 (0.2-1.0) mg/dL AST 23 (15-37) U/L ALT 20 (14-59) U/L Alkaline Phosphatase 129 H (46-116) U/L Total Protein 7.6 (6.4-8.2) g/dL Albumin 3.3 L (3.4-5.0) g/dL Globulin 4.3 Albumin/Globulin Ratio 0.77 Urine Color (YELLOW) Urine Appearance (CLEAR) Urine pH (5.0-9.0) Ur Specific [place] (1.005-1.030) Urine Protein (NEGATIVE) Urine Glucose (UA) (NEGATIVE) Urine Ketones (NEGATIVE) Urine Occult Blood (NEGATIVE) Urine Nitrite (NEGATIVE) Urine Bilirubin (NEGATIVE) Urine Urobilinogen (0.2-1.0) mg/dL Ur Leukocyte Esterase (NEGATIVE) Urine RBC (0-5) /HPF Urine WBC (0-5/HPF) /HPF Ur Epithelial Cells (NOT SEEN) /HPF Urine Bacteria (0-FEW/HPF) /HPF Urine Mucus (NOT SEEN) /LPF Urine HCG, Qual SARS-CoV-2 RNA (TAMIKO) Negative (NEGATIVE) Blood Type O POSITIVE Gel Antibody Screen Negative Crossmatch See Detail Meds: Medications Discontinued Medications Generic Name Dose Route Start Last Admin Trade Name Freq PRN Reason Stop Dose Admin Al Hydroxide/Mg Hydroxide 30 ml 12/02/20 15:38 12/02/20 15:44 Gi Cocktail Oral Solution 30 Ml PO 12/02/20 15:39 30 ml ONETIME ONE Administration Ceftriaxone Sodium 1 gm/ 50 mls @ 100 mls/hr 12/02/20 16:43 12/02/20 17:24 Sodium Chloride IV 12/02/20 17:12 100 mls/hr ONETIME ONE Administration Iopamidol 100 ml 12/02/20 16:33 12/02/20 16:44 Iopamidol 612 Mg/Ml 100 Ml Bottle IVPUSH 12/02/20 16:34 100 ml ONETIME ONE Administration Octreotide Acetate 50 mcg 12/02/20 18:48 12/02/20 19:02 Octreotide 100 Mcg/Ml Sdv IVPUSH 12/02/20 18:49 50 mcg ONETIME ONE Administration Pantoprazole Sodium 80 mg 12/02/20 18:48 12/02/20 19:02 Pantoprazole 40 Mg Vial IVPUSH 12/02/20 18:49 80 mg .BOLUS ONE Administration Departure - Departure Time of Disposition: 19:45 Condition: Fair - Discharge Information *PRESCRIPTION DRUG MONITORING PROGRAM REVIEWED*: Not Applicable *COPY OF PRESCRIPTION DRUG MONITORING REPORT IN PATIENT PUSHPA: Not Applicable Sepsis Event Note (ED) - Focused Exam Vital Signs: Vital Signs Temp Temp Pulse Resp BP BP Pulse Ox 12/02/20 18:47 98.4 F 71 16 145/75 H 12/02/20 18:32 98.4 F 69 18 150/66 H 12/02/20 18:17 78 12/02/20 18:15 98.4 F 65 16 134/67 12/02/20 18:02 98 F 67 20 122/91 H 12/02/20 14:36 98.4 F 74 14 131/69 100 I have read and agree with the documentation that has been completed regarding this visit. By signing this record, I attest that the documentation was completed in my physical presence and is an accurate record of the encounter.
[2020-12-02] MEDS ORDERED: Octreotide 100 MCG/ML SDV IVPUSH ONE (18:48)
[2020-12-02] MEDS ORDERED: Pantoprazole 40 MG Vial IVPUSH ONE (18:48)
[2020-12-02 20:08] VITALS: BP 115/62
[2020-12-02 20:09] VITALS: PULSE 65
== END 2020-12-02 20:31 ==
LOC: DL.ED 14:09
DX: K25.4 Chronic or unspecified gastric ulcer with hemorrhage (principal); Z72.0 Tobacco use
CPT/HCPCS: 36415; 36430; 74177; 80053; 81001; 81025; 85025; 86850; 86900; 86901; 86920; 86922; 87086; 87088; 87186; 87635; 96365; 96375; 99285; A9270; C9113; J0696; J2354; P9016; Q9967; U0002

== ENCOUNTER 2021-09-09 00:12 | Emergency (ER) | payer SELFPAY ==
[2021-09-09 00:24] VITALS: BP 141/76; PULSE 85
[2021-09-09] MEDS ORDERED: cefTRIAXone 500 MG, Lidocaine 1% 1 ML IM ONE ×2 (00:29)
[2021-09-09] MEDS ORDERED: Azithromycin 250 MG Tab PO ONE (00:29)
[2021-09-11 11:47] LABS: C.TRACHOMATIS BY TMA Negative (Negative); N.GONORRHOEAE BY TMA Positive (Negative)
== END 2021-09-09 00:59 | disposition home or self-care (01) ==
LOC: DL.ED 00:12
DX: N39.0 Urinary tract infection, site not specified (principal); Z20.2 Contact with and (suspected) exposure to infections with a predominantly sexual mode of transmission
CPT/HCPCS: 81001; 81025; 87086; 87088; 87186; 87491; 87591; 96372; 99283; A9270-GY; J0696

== ENCOUNTER 2021-09-27 16:20 | Inpatient (IN) | payer SELFPAY ==
[2021-09-27 19:52] LABS: ANION GAP 14.7 mEq/L (7-13); CHLORIDE,CL 103 mmol/L (98-107); SODIUM,NA 140 mmol/L (136-145)
[2021-09-27 19:55] LABS: ESTIMATED GFR 87 mL/min (>=60)
[2021-09-27] MEDS ORDERED: Sodium Chloride 0.9% 1,000 ML IV ONE (20:03)
[2021-09-27] MEDS ORDERED: Iopamidol 612 MG/ML 100 ML Bottle IVPUSH ONE (20:19)
[2021-09-27] MEDS ORDERED: Piperacillin/Tazobactam 3.375 GM in Sodium Chloride 0.9% 100 ML IV ONE (22:57)
[2021-09-27] MEDS ORDERED: Docusate Sodium 100 MG Cap PO PRN ×2 (23:15→23:26)
[2021-09-27] MEDS ORDERED: HYDROmorphone 0.5 MG/0.5 ML Syringe IVPUSH PRN (23:15)
[2021-09-27] MEDS ORDERED: Ketorolac 30 MG/ML SDV IVPUSH PRN ×2 (23:15→23:26)
[2021-09-27] MEDS ORDERED: Acetaminophen/oxyCODONE 325-5 MG Tab PO PRN (23:15)
[2021-09-27] MEDS ORDERED: Morphine 2 MG/ML SYRINGE IVPUSH PRN ×2 (23:15→23:26)
[2021-09-27] MEDS ORDERED: Magnesium Hydroxide 400 MG/5 ML Susp 30 ML Cup PO PRN ×2 (23:15→23:26)
[2021-09-27] MEDS ORDERED: Polyethylene Glycol 3350 Powder 17 GM Packet PO PRN ×2 (23:15→23:26)
[2021-09-27] MEDS ORDERED: Zolpidem 5 MG Tab PO PRN (23:15)
[2021-09-27] MEDS ORDERED: Ondansetron 4 MG/2 ML SDV IVPUSH PRN (23:15)
[2021-09-27] MEDS ORDERED: Bisacodyl 5 MG Tab PO PRN ×2 (23:15→23:26)
[2021-09-27] MEDS ORDERED: Acetaminophen 325 MG Tab PO PRN (23:15)
[2021-09-27] MEDS ORDERED: Albuterol/Ipratropium 3.0-0.5 MG/3 ML Neb Soln NEB PRN (23:15)
[2021-09-27] MEDS ORDERED: Piperacillin/Tazobactam 3.375 GM in Sodium Chloride 0.9% 100 ML IV SCH (23:30)
[2021-09-27] MEDS ORDERED: Metoprolol Tartrate 5 MG/5 ML SDV IVPUSH PRN (23:44)
[2021-09-27] MEDS ORDERED: hydrALAZINE 20 MG/ML SDV IVPUSH PRN (23:44)
[2021-09-27] MEDS ORDERED: Dextrose 5%-0.9% NaCl 1,000 ML IV SCH (23:45)
[2021-09-27] MEDS ORDERED: LORazepam 2 MG/ML SDV IV PRN (23:50)
[2021-09-27] MEDS ORDERED: LORazepam 0.5 MG Tab PO PRN (23:50)
[2021-09-27] MEDS ORDERED: cloNIDine 0.1 MG Tab PO PRN (23:50)
[2021-09-27] MEDS ORDERED: LORazepam 2 MG/ML SDV IVPUSH PRN (23:53)
[2021-09-27] MEDS ORDERED: Bisacodyl 10 MG Supp RECTAL PRN (23:55)
[2021-09-28] MEDS: Piperacillin/Tazobactam 3.375 GM in Sodium Chloride 0.9% 100 ML IV SCH ×3 (00:51→12:08)
[2021-09-28 01:21] LABS: AMPHETAMINES,URINE POSITIVE (NEGATIVE); BARBITURATES,URINE NEGATIVE (NEGATIVE); BENZODIAZEPINE,URINE NEGATIVE (NEGATIVE); MDMA (ECSTASY), URINE NEGATIVE (NEGATIVE); METHADONE,URINE NEGATIVE (NEGATIVE); METHAMPHETAMINES,URINE POSITIVE (NEGATIVE); OPIATES,URINE NEGATIVE (NEGATIVE); OXYCODONE,URINE NEGATIVE (NEGATIVE); PHENCYCLIDINE,URINE NEGATIVE (NEGATIVE); TCA,URINE NEGATIVE (NEGATIVE)
[2021-09-28 07:11] LABS: ANION GAP 10.7 mEq/L (7-13)
[2021-09-28 12:10] VITALS: BP 101/41; PULSE 52
== END 2021-09-28 12:00 | DRG 446 ==
LOC: DL.ED 16:20 → DL.MS 23:15
PROVIDERS: ADMIT Internal Medicine; ATTEND Internal Medicine
PROC: 30233N1 Transfusion of Nonautologous Red Blood Cells into Peripheral Vein, Percutaneous Approach (ICD-10-PCS; principal; 2021-09-28)
DX: K80.00 Calculus of gallbladder with acute cholecystitis without obstruction (principal); K59.00 Constipation, unspecified; N30.91 Cystitis, unspecified with hematuria; N83.202 Unspecified ovarian cyst, left side; N83.201 Unspecified ovarian cyst, right side; Z20.822 Contact with and (suspected) exposure to COVID-19; Z96.0 Presence of urogenital implants; D50.9 Iron deficiency anemia, unspecified; D75.839 Thrombocytosis, unspecified; Z87.19 Personal history of other diseases of the digestive system; Z87.442 Personal history of urinary calculi; Z93.6 Other artificial openings of urinary tract status; Z87.891 Personal history of nicotine dependence; Z91.14 Patient's other noncompliance with medication regimen
CPT/HCPCS: 36415; 36430; 74177; 80053; 80305-QW; 80307; 81001; 81025; 83605; 83690; 83735; 85014; 85018; 85025; 85651; 86140; 86850; 86900; 86901; 86920; 86922; A9270-GY; J2543; J7030; J7042; P9016; Q9967; U0002

== ENCOUNTER 2021-10-28 23:10 | Emergency (ER) | payer SELFPAY ==
[2021-10-29] MEDS ORDERED: Sodium Chloride 0.9% 1,000 ML IV ONE (00:07)
[2021-10-29] MEDS ORDERED: Pantoprazole 80 MG in Sodium Chloride 0.9% 100 ML IV ONE (00:08)
[2021-10-29 00:15] LABS: AMPHETAMINES,URINE POSITIVE (NEGATIVE); BARBITURATES,URINE NEGATIVE (NEGATIVE); BENZODIAZEPINE,URINE NEGATIVE (NEGATIVE); MDMA (ECSTASY), URINE NEGATIVE (NEGATIVE); METHADONE,URINE NEGATIVE (NEGATIVE); METHAMPHETAMINES,URINE POSITIVE (NEGATIVE); OPIATES,URINE NEGATIVE (NEGATIVE); OXYCODONE,URINE NEGATIVE (NEGATIVE); PHENCYCLIDINE,URINE NEGATIVE (NEGATIVE); TCA,URINE NEGATIVE (NEGATIVE)
[2021-10-29 00:17] LABS: ANION GAP 12.6 mEq/L (7-13)
[2021-10-29] MEDS ORDERED: Iopamidol 612 MG/ML 100 ML Bottle IVPUSH ONE (00:27)
[2021-10-29 01:01] VITALS: BP 120/57; PULSE 72
[2021-10-29] MEDS ORDERED: Piperacillin/Tazobactam 3.375 GM in Sodium Chloride 0.9% 100 ML IV ONE (02:07)
== END 2021-10-29 02:51 ==
LOC: DL.ED 23:10
DX: K81.0 Acute cholecystitis (principal); D64.9 Anemia, unspecified; N20.0 Calculus of kidney; N28.1 Cyst of kidney, acquired; F17.210 Nicotine dependence, cigarettes, uncomplicated; Z20.822 Contact with and (suspected) exposure to COVID-19
CPT/HCPCS: 36415; 74177; 80053; 80305-QW; 80307; 81001; 81025; 83735; 85025; 96361; 96365; 96367; 99285-25; C9113; J2543; J7030; Q9967; U0002

== ENCOUNTER 2022-01-06 18:36 | Emergency (ER) | payer SELFPAY ==
[2022-01-06] MEDS ORDERED: Sodium Chloride 0.9% 1,000 ML IV ONE ×2 (19:42→20:46)
[2022-01-06] MEDS ORDERED: Ondansetron 4 MG/2 ML SDV IVPUSH ONE (19:42)
[2022-01-06] MEDS ORDERED: fentaNYL 100 MCG/2 ML SDV IVPUSH ONE ×2 (19:42→21:34)
[2022-01-06 20:38] LABS: ANION GAP 14.5 mEq/L (7-13); CHLORIDE,CL 98 mmol/L (98-107); SODIUM,NA 134 mmol/L (136-145)
[2022-01-06 20:41] LABS: ESTIMATED GFR 92 mL/min (>=60)
[2022-01-06] MEDS ORDERED: Iopamidol 612 MG/ML 100 ML Bottle IVPUSH ONE (20:46)
[2022-01-06] MEDS ORDERED: Piperacillin/Tazobactam 3.375 GM in Sodium Chloride 0.9% 100 ML IV ONE (21:33)
[2022-01-06 21:46] VITALS: BP 123/51; PULSE 82
== END 2022-01-06 22:30 | disposition home or self-care (01) ==
LOC: DL.ED 18:36
DX: K80.80 Other cholelithiasis without obstruction (principal); K59.01 Slow transit constipation; F17.210 Nicotine dependence, cigarettes, uncomplicated
CPT/HCPCS: 36415; 74177; 80053; 80307; 82150; 83605; 83690; 84703; 85025; 87040; 96361; 96365; 96375; 96376; 99284; J2405; J2543; J3010; J7030; Q9967

== ENCOUNTER 2022-01-09 14:37 | Emergency (ER) | payer SELFPAY ==
[2022-01-09] MEDS ORDERED: Sodium Chloride 0.9% 1,000 ML IV ONE (15:40)
[2022-01-09] MEDS ORDERED: Ondansetron 4 MG/2 ML SDV IVPUSH ONE ×2 (15:42→16:47)
[2022-01-09] MEDS ORDERED: HYDROmorphone 1 MG/ML Syringe IVPUSH ONE (15:43)
[2022-01-09] MEDS ORDERED: Iopamidol 612 MG/ML 100 ML Bottle IV ONE ×2 (15:44→15:47)
[2022-01-09] MEDS ORDERED: Lactulose Soln 10 GM/15 ML 30 ML UD Cup PO ONE (16:47)
[2022-01-09] MEDS ORDERED: Bisacodyl 5 MG Tab PO ONE (16:47)
[2022-02-04 14:33] LABS: ANION GAP 11.3 mEq/L (7-13); CHLORIDE,CL 99 mmol/L (98-107); ESTIMATED GFR 115 mL/min (>=60); SODIUM,NA 134 mmol/L (136-145)
[2022-02-04 14:35] LABS: PTT,PARTIAL THROMBOPLSTIN TIME 26.9 SEC (22.0-34.0)
[2022-02-04 14:40] LABS: RESPIRATORY SYNCYTIAL VIR NAA NEGATIVE (NEGATIVE)
[2022-02-04 14:41] LABS: CORONAVIRUS COVID-19 NAA POSITIVE (NEGATIVE)
== END 2022-01-09 17:04 | disposition home or self-care (01) ==
LOC: DL.ED 14:37
DX: K80.50 Calculus of bile duct without cholangitis or cholecystitis without obstruction (principal); K59.00 Constipation, unspecified; Z98.890 Other specified postprocedural states; Z20.822 Contact with and (suspected) exposure to COVID-19
CPT/HCPCS: 0241U; 36415; 74177; 80053; 80307; 81001; 82150; 83605; 83690; 85025; 85610; 85730; 96361; 96374; 96375; 96376; 99284; A9270; J1170; J2405; J7030; Q9967

== ENCOUNTER 2022-03-07 18:24 | Emergency (ER) | payer SELFPAY ==
[2022-03-07 19:40] VITALS: BP 126/103; PULSE 92
[2022-03-07] MEDS ORDERED: Sodium Chloride 0.9% 10 ML Syringe FLUSH PRN (19:51)
[2022-03-07 20:36] LABS: ANION GAP 12.8 mEq/L (7-13); CHLORIDE,CL 101 mmol/L (98-107); ESTIMATED GFR 45 mL/min (>=60); SODIUM,NA 136 mmol/L (136-145)
[2022-03-07] MEDS ORDERED: HYDROmorphone 0.5 MG/0.5 ML Syringe IVPUSH ONE (20:39)
[2022-03-07] MEDS ORDERED: Sodium Chloride 0.9% 1,000 ML IV ONE ×2 (20:58→20:59)
[2022-03-07] MEDS ORDERED: Ketorolac 30 MG/ML SDV IVPUSH ONE (21:03)
== END 2022-03-07 21:30 | disposition home or self-care (01) ==
LOC: DL.ED 18:24
DX: R10.11 Right upper quadrant pain (principal)
CPT/HCPCS: 36415; 80053; 82150; 83605; 83690; 85025; 86140; 87040; 96374; 96375; 99284; J1170; J1885; J3490

== ENCOUNTER 2022-03-08 00:23 | Emergency (ER) | payer SELFPAY | END 2022-03-08 02:12 | disposition left against medical advice (07) | LOC: DL.ED 00:23 | DX: Z53.21 Procedure and treatment not carried out due to patient leaving prior to being seen by health care provider (principal) ==

== ENCOUNTER 2022-05-15 16:35 | Emergency (ER) | payer MEDICAID, OTHER ==
[2022-05-15 16:54] VITALS: BP 131/79; PULSE 122
[2022-05-15] MEDS ORDERED: Bacitracin Oint 1 GM U/D Packet TOP ONE (17:25)
[2022-05-15] MEDS ORDERED: Clindamycin HCl 150 MG Cap PO ONE (17:26)
== END 2022-05-15 17:57 | disposition home or self-care (01) ==
LOC: DL.ED 16:35
DX: T85.79XA Infection and inflammatory reaction due to other internal prosthetic devices, implants and grafts, initial encounter (principal)
CPT/HCPCS: 87070; 99283; 99284; A9270-GY

== ENCOUNTER 2022-05-16 17:44 | Emergency (ER) | payer OTHER ==
[2022-05-16 17:58] VITALS: BP 135/88; PULSE 83
[2022-05-16 18:37] LABS: AMPHETAMINES,URINE POSITIVE (NEGATIVE); BARBITURATES,URINE NEGATIVE (NEGATIVE); BENZODIAZEPINE,URINE NEGATIVE (NEGATIVE); MDMA (ECSTASY), URINE NEGATIVE (NEGATIVE); METHADONE,URINE NEGATIVE (NEGATIVE); METHAMPHETAMINES,URINE POSITIVE (NEGATIVE); OPIATES,URINE NEGATIVE (NEGATIVE); OXYCODONE,URINE NEGATIVE (NEGATIVE); PHENCYCLIDINE,URINE NEGATIVE (NEGATIVE); TCA,URINE NEGATIVE (NEGATIVE)
[2022-05-16] MEDS ORDERED: Sodium Chloride 0.9% 10 ML Syringe FLUSH PRN (18:45)
[2022-05-16] MEDS ORDERED: Famotidine 20 MG/2 ML SDV IVPUSH ONE (18:46)
[2022-05-16] MEDS ORDERED: Sodium Chloride 0.9% 1,000 ML IV ONE (18:46)
[2022-05-16] MEDS ORDERED: Iopamidol 612 MG/ML 100 ML Bottle IVPUSH ONE (18:47)
[2022-05-16 19:06] LABS: RESPIRATORY SYNCYTIAL VIR NAA NEGATIVE (NEGATIVE)
[2022-05-16 19:39] LABS: ANION GAP 11.9 mEq/L (7-13); CHLORIDE,CL 106 mmol/L (98-107); SODIUM,NA 139 mmol/L (136-145)
[2022-05-16 19:51] LABS: ESTIMATED GFR 101 mL/min (>=60)
[2022-05-16 19:59] LABS: CORONAVIRUS COVID-19 NAA POSITIVE (NEGATIVE)
[2022-05-16] MEDS ORDERED: Piperacillin/Tazobactam 3.375 GM in Sodium Chloride 0.9% 100 ML IV ONE (20:38)
[2022-05-16] MEDS ORDERED: fentaNYL 100 MCG/2 ML SDV IVPUSH ONE (20:49)
== END 2022-05-16 21:25 ==
LOC: DL.ED 17:44
DX: L02.211 Cutaneous abscess of abdominal wall (principal); K21.9 Gastro-esophageal reflux disease without esophagitis; Z72.0 Tobacco use
CPT/HCPCS: 0241U; 36415; 74177; 80053; 80305-QW; 81001; 81025; 82150; 83540; 83605; 83690; 85025; 86140; 87040; 96361; 96365; 96375; 99284; 99285-25; J2543; J3370; J3490; J7030; J7050; Q9967

== ENCOUNTER 2022-06-29 12:23 | Emergency (ER) | payer OTHER ==
[2022-06-29 12:58] VITALS: PULSE 68
[2022-06-29 13:12] VITALS: BP 133/61
== END 2022-06-29 13:04 | disposition home or self-care (01) ==
LOC: DL.ED 12:23
DX: R10.12 Left upper quadrant pain (principal); Z86.16 Personal history of COVID-19; Z88.8 Allergy status to other drugs, medicaments and biological substances; Z98.890 Other specified postprocedural states
CPT/HCPCS: 99282; 99283

== ENCOUNTER 2022-09-02 18:17 | Emergency (ER) | payer MEDICAID | END 2022-09-02 18:24 | disposition left against medical advice (07) | LOC: DL.ED 18:17 | DX: Z53.21 Procedure and treatment not carried out due to patient leaving prior to being seen by health care provider (principal) ==

== ENCOUNTER 2024-12-29 23:48 | Emergency (ER) | payer MEDICAID ==
[2024-12-30] MEDS: Take Home: Amoxicillin/Clavulanate K 875-125 MG Tab, 6 Tab Pack PO ONE (00:49)
[2024-12-30] MEDS ORDERED: Lidocaine 2% Viscous Solution 15 ML UD ONE (00:51)
[2024-12-30] MEDS: Lidocaine 2% Viscous Solution 15 ML UD PO ONE (00:51)
[2024-12-30 03:11] VITALS: BP 102/55; PULSE 72
== END 2024-12-30 00:55 | disposition home or self-care (01) ==
LOC: DL.ED 23:48
DX: K04.7 Periapical abscess without sinus (principal); Z88.6 Allergy status to analgesic agent; Z86.16 Personal history of COVID-19
CPT/HCPCS: 99282; 99283; A9270; J3490

== ENCOUNTER 2024-12-31 14:36 | Inpatient (IN) | payer MEDICAID ==
[2024-12-31 15:28] LABS: PLATELET COUNT,PLT 680 10^3/uL (150-450); RED BLOOD CELL COUNT 3.60 10^6/uL (4.2-5.4); WHITE BLOOD CELL COUNT,WBC 11.4 10^3/uL (5.0-10.0)
[2024-12-31 15:47] LABS: ALANINE AMINOTRANSFERASE,ALT 9 U/L (14-59); ASPARTATE AMNIOTRANSFERASE,AST 12 U/L (15-37); BILIRUBIN TOTAL 0.6 mg/dL (0.2-1.0); BLOOD UREA NITROGEN,BUN 6 mg/dL (7-18); CARBON DIOXIDE,CO2 27 mmol/L (21-32); CHLORIDE,CL 105 mmol/L (98-107); CREATININE 0.53 mg/dL (0.55-1.02); GLUCOSE RANDOM 100 mg/dL (70-99); POTASSIUM,K 4.4 mmol/L (3.5-5.1); PROTEIN TOTAL,TP 7.9 g/dL (6.4-8.2); SODIUM,NA 138 mmol/L (136-145)
[2024-12-31 15:48] LABS: A/G RATIO 0.58; ESTIMATED GFR 120 mL/min (>=60)
[2024-12-31] MEDS: Clindamycin in 0.9 % Sod Chlor 600 MG in Premix Bag 1 BAG IV ONE (15:51)
[2024-12-31] MEDS: Sodium Chloride 0.9% 10 ML Syringe FLUSH PRN (16:02)
[2024-12-31 16:13] LABS: HCG QUALITATIVE,SERUM NEGATIVE (NEGATIVE)
[2024-12-31] MEDS: diphenhydrAMINE 50 MG/ML SDV IV ONE (16:33)
[2024-12-31 17:19] LABS: BASOPHILS PERCENT AUTO 0.4 % (0.0-1.0); EOSINOPHILS PERCENT AUTO 1.2 % (1.0-3.0); LYMPHOCYTES PERCENT AUTO 18.5 % (20.5-50.1); MONOCYTES PERCENT AUTO 8.4 % (2-8); NEUTROPHILS PERCENT AUTO 71.5 % (42.2-75.2)
[2024-12-31 17:20] LABS: BAND PERCENT MAN 1 %; BASOPHILS PERCENT MAN 1; LYMPHOCYTES PERCENT MAN 20 % (20-50); MONOCYTES PERCENT MAN 3 % (2-8); SEG NEUTROPHILS PERCENT MAN 75 % (42-75)
[2024-12-31 18:48] LABS: RETICULOCYTE COUNT PERCENT 2 % (0.5-1.5)
[2024-12-31] MEDS: Iopamidol 755 Mg/ML 100 ML Bottle IVPUSH ONE (19:37)
[2024-12-31] MEDS ORDERED: Sennosides/Docusate Sodium 50-8.6 MG Tab PO PRN (21:27)
[2024-12-31 22:51] LABS: FOLIC ACID 7.8 ng/mL (8.6-58.9)
[2024-12-31 22:55] LABS: IRON,FE 14.0 ug/dL (50-170); PERCENT FE SATURATION 3.5 % (20.0-50.0)
[2024-12-31] MEDS: methylPREDNISolone Sodium Succinate 40 MG/1 ML SDV IVPUSH SCH (22:56)
[2024-12-31] MEDS: Ampicillin/Sulbactam Na 3 GM in Sodium Chloride 0.9% 100 ML IV SCH (22:57)
[2024-12-31 23:40] LABS: T4 FREE 1.18 ng/dL (0.76-1.46); TSH ULTRASENSITIVE 0.43 uIU/mL (0.36-3.74)
[2025-01-01 06:46] LABS: BASOPHILS PERCENT AUTO 0.0 % (0.0-1.0); EOSINOPHILS PERCENT AUTO 0.0 % (1.0-3.0); LYMPHOCYTES PERCENT AUTO 3.1 % (20.5-50.1); MONOCYTES PERCENT AUTO 0.5 % (2-8); NEUTROPHILS PERCENT AUTO 96.4 % (42.2-75.2); PLATELET COUNT,PLT 611 10^3/uL (150-450); RED BLOOD CELL COUNT 4.28 10^6/uL (4.2-5.4); WHITE BLOOD CELL COUNT,WBC 7.7 10^3/uL (5.0-10.0)
[2025-01-01 07:10] LABS: BLOOD UREA NITROGEN,BUN 7.0 mg/dL (7-18); CARBON DIOXIDE,CO2 24.0 mmol/L (21-32); CHLORIDE,CL 104.0 mmol/L (98-107); CREATININE 0.59 mg/dL (0.55-1.02); EST CRCL DRUG DOSING (CG) 105.28 mL/min; GLUCOSE RANDOM 186.0 mg/dL (70-99); POTASSIUM,K 4.2 mmol/L (3.5-5.1); SODIUM,NA 138.0 mmol/L (136-145)
[2025-01-01 07:14] LABS: INR 0.9 (0.9-1.2); PTT,PARTIAL THROMBOPLSTIN TIME 25.6 SEC (22.0-34.0)
[2025-01-01 07:24] LABS: ESTIMATED GFR 117.0 mL/min (>=60)
[2025-01-01] MEDS: Ketorolac 30 MG/ML SDV IVPUSH PRN (08:54)
[2025-01-01] MEDS ORDERED: VANCOmycin 1.5 GM/300 ML 1.5 GM in Premix Bag 1 BAG IV SCH (11:00)
[2025-01-01 18:14] LABS: APPEARANCE,URINE SLIGHTLY CLOUDY (CLEAR); GLUCOSE,URINE 250 (NEGATIVE); OCCULT BLOOD,URINE NEGATIVE (NEGATIVE)
[2025-01-02 06:45] LABS: BASOPHILS PERCENT AUTO 0.1 % (0.0-1.0); EOSINOPHILS PERCENT AUTO 0.0 % (1.0-3.0); LYMPHOCYTES PERCENT AUTO 2.9 % (20.5-50.1); MONOCYTES PERCENT AUTO 1.3 % (2-8); NEUTROPHILS PERCENT AUTO 95.7 % (42.2-75.2); PLATELET COUNT,PLT 662 10^3/uL (150-450); RED BLOOD CELL COUNT 4.20 10^6/uL (4.2-5.4); WHITE BLOOD CELL COUNT,WBC 17.1 10^3/uL (5.0-10.0)
[2025-01-02 07:15] LABS: BLOOD UREA NITROGEN,BUN 15.0 mg/dL (7-18); CARBON DIOXIDE,CO2 25.0 mmol/L (21-32); CHLORIDE,CL 106.0 mmol/L (98-107); CREATININE 0.61 mg/dL (0.55-1.02); EST CRCL DRUG DOSING (CG) 111.31 mL/min; GLUCOSE RANDOM 153.0 mg/dL (70-99); POTASSIUM,K 4.1 mmol/L (3.5-5.1); SODIUM,NA 140.0 mmol/L (136-145)
[2025-01-02 07:17] LABS: ESTIMATED GFR 116.0 mL/min (>=60)
[2025-01-02] MEDS: Ondansetron 4 MG/2 ML SDV IVPUSH PRN (19:36)
[2025-01-03 07:10] LABS: BLOOD UREA NITROGEN,BUN 13.0 mg/dL (7-18); CARBON DIOXIDE,CO2 24.0 mmol/L (21-32); CHLORIDE,CL 106.0 mmol/L (98-107); CREATININE 0.65 mg/dL (0.55-1.02); EST CRCL DRUG DOSING (CG) 106.19 mL/min; GLUCOSE RANDOM 168.0 mg/dL (70-99); POTASSIUM,K 4.4 mmol/L (3.5-5.1); SODIUM,NA 139.0 mmol/L (136-145)
[2025-01-03 07:21] LABS: ESTIMATED GFR 114.0 mL/min (>=60)
[2025-01-03 07:33] LABS: PLATELET COUNT,PLT 541 10^3/uL (150-450); RED BLOOD CELL COUNT 4.21 10^6/uL (4.2-5.4); WHITE BLOOD CELL COUNT,WBC 21.9 10^3/uL (5.0-10.0)
[2025-01-03 07:35] LABS: BASOPHILS PERCENT AUTO 0.1 % (0.0-1.0); EOSINOPHILS PERCENT AUTO 0.1 % (1.0-3.0); LYMPHOCYTES PERCENT AUTO 2.9 % (20.5-50.1); MONOCYTES PERCENT AUTO 1.6 % (2-8); NEUTROPHILS PERCENT AUTO 95.3 % (42.2-75.2)
[2025-01-03 07:51] LABS: LYMPHOCYTES PERCENT MAN 2 % (20-50); MONOCYTES PERCENT MAN 1 % (2-8); NRBC MANUAL 2 /100WBC; SEG NEUTROPHILS PERCENT MAN 97 % (42-75)
[2025-01-04 06:53] LABS: BASOPHILS PERCENT AUTO 0.1 % (0.0-1.0); EOSINOPHILS PERCENT AUTO 0.0 % (1.0-3.0); LYMPHOCYTES PERCENT AUTO 3.3 % (20.5-50.1); MONOCYTES PERCENT AUTO 2.0 % (2-8); NEUTROPHILS PERCENT AUTO 94.6 % (42.2-75.2); PLATELET COUNT,PLT 650 10^3/uL (150-450); RED BLOOD CELL COUNT 4.11 10^6/uL (4.2-5.4); WHITE BLOOD CELL COUNT,WBC 22.2 10^3/uL (5.0-10.0)
[2025-01-04 07:13] LABS: BLOOD UREA NITROGEN,BUN 16.0 mg/dL (7-18); CARBON DIOXIDE,CO2 29.0 mmol/L (21-32); CHLORIDE,CL 106.0 mmol/L (98-107); CREATININE 0.61 mg/dL (0.55-1.02); EST CRCL DRUG DOSING (CG) 113.15 mL/min; ESTIMATED GFR 116.0 mL/min (>=60); GLUCOSE RANDOM 128.0 mg/dL (70-99); POTASSIUM,K 4.1 mmol/L (3.5-5.1); SODIUM,NA 139.0 mmol/L (136-145)
[2025-01-04] MEDS: Ketorolac 30 MG/ML SDV IVPUSH PRN (12:50)
[2025-01-04] MEDS: Iopamidol 612 MG/ML 100 ML Bottle IVPUSH ONE (13:24)
[2025-01-04] MEDS: Iopamidol 755 Mg/ML 100 ML Bottle IVPUSH ONE (13:54)
[2025-01-04] MEDS: Take Home: Clindamycin HCl 150 MG, 12 Cap Pack PO ONE (20:20)
[2025-01-05 00:07] VITALS: BP 149/72; PULSE 58
== END 2025-01-04 20:30 | disposition home or self-care (01) | DRG 159 ==
LOC: DL.ED 14:36 → DL.MS 20:36
PROVIDERS: ADMIT Student in an Organized Health Care Education/Training Program; ATTEND Student in an Organized Health Care Education/Training Program
PROC: 30233N1 Transfusion of Nonautologous Red Blood Cells into Peripheral Vein, Percutaneous Approach (ICD-10-PCS; principal; 2024-12-31)
DX: K05.219 Aggressive periodontitis, localized, unspecified severity (principal); D64.9 Anemia, unspecified; D50.9 Iron deficiency anemia, unspecified; D75.839 Thrombocytosis, unspecified; M94.0 Chondrocostal junction syndrome [Tietze]; E04.1 Nontoxic single thyroid nodule; J32.4 Chronic pansinusitis; K21.9 Gastro-esophageal reflux disease without esophagitis; N20.0 Calculus of kidney; Z98.890 Other specified postprocedural states; Z86.16 Personal history of COVID-19; Z90.49 Acquired absence of other specified parts of digestive tract; Z88.8 Allergy status to other drugs, medicaments and biological substances; Z87.891 Personal history of nicotine dependence
CPT/HCPCS: 36415; 36430; 70491; 71046; 74177; 80048; 80053; 80202; 81003; 82150; 82272; 82607; 82728; 82746; 83540; 83550; 83690; 83735; 84145; 84439; 84443; 84484; 84703; 85014; 85018; 85025; 85045; 85610; 85651; 85730; 86140; 86850; 86900; 86901; 86920; 86922; 87040; 93005; 93010; 96365; 96375; 99222; 99232; 99238; 99284; 99285-25; A9270-GY; J0295; J0737; J1200; J1885; J2405; J2470; J2919; J3373; J3374; J7030; J7050; P9016; Q0138; Q9967

== ENCOUNTER 2025-01-17 21:58 | Emergency (ER) | payer MEDICAID ==
[2025-01-17] MEDS ORDERED: Sodium Chloride 0.9% 10 ML Syringe FLUSH PRN (22:24)
[2025-01-17 22:42] LABS: BASOPHILS PERCENT AUTO 0.3 % (0.0-1.0); EOSINOPHILS PERCENT AUTO 1.0 % (1.0-3.0); LYMPHOCYTES PERCENT AUTO 8.5 % (20.5-50.1); MONOCYTES PERCENT AUTO 6.8 % (2-8); NEUTROPHILS PERCENT AUTO 83.4 % (42.2-75.2); PLATELET COUNT,PLT 313 10^3/uL (150-450); RED BLOOD CELL COUNT 4.22 10^6/uL (4.2-5.4); WHITE BLOOD CELL COUNT,WBC 12.2 10^3/uL (5.0-10.0)
[2025-01-17 23:04] LABS: LACTIC ACID 0.7 mmol/L (0.4-2.0)
[2025-01-17 23:12] LABS: A/G RATIO 0.76; ALANINE AMINOTRANSFERASE,ALT 27.0 U/L (14-59); ASPARTATE AMNIOTRANSFERASE,AST 25.0 U/L (15-37); BILIRUBIN TOTAL 0.8 mg/dL (0.2-1.0); BLOOD UREA NITROGEN,BUN 13.0 mg/dL (7-18); CARBON DIOXIDE,CO2 27.0 mmol/L (21-32); CHLORIDE,CL 106.0 mmol/L (98-107); CREATININE 0.61 mg/dL (0.55-1.02); EST CRCL DRUG DOSING (CG) 105.86 mL/min; ESTIMATED GFR 116.0 mL/min (>=60); GLUCOSE RANDOM 96.0 mg/dL (70-99); POTASSIUM,K 4.2 mmol/L (3.5-5.1); PROTEIN TOTAL,TP 7.4 g/dL (6.4-8.2); SODIUM,NA 138.0 mmol/L (136-145)
[2025-01-17] MEDS: Iopamidol 755 Mg/ML 100 ML Bottle IVPUSH ONE (23:16)
[2025-01-17] MEDS: metroNIDAZOLE/Normal Saline 500 MG in Premix Bag 1 BAG IV ONE (23:42)
[2025-01-18] MEDS: Iopamidol 612 MG/ML 100 ML Bottle IVPUSH ONE (00:10)
[2025-01-18] MEDS: Take Home: metroNIDAZOLE 250 MG Tab, 8 Tab Pack PO ONE (00:52)
[2025-01-18 01:30] VITALS: BP 121/76; PULSE 89
== END 2025-01-18 01:26 | disposition home or self-care (01) ==
LOC: DL.ED 21:58
DX: K05.219 Aggressive periodontitis, localized, unspecified severity (principal); K02.9 Dental caries, unspecified; Z88.5 Allergy status to narcotic agent; K21.9 Gastro-esophageal reflux disease without esophagitis; Z79.899 Other long term (current) drug therapy
CPT/HCPCS: 36415; 70491; 80053; 83605; 85025; 96365; 96375; 99284; A9270; J0696; J1836; Q9967; 99283

== ENCOUNTER 2025-01-18 13:20 | Emergency (ER) | payer MEDICAID ==
[2025-01-18] MEDS: Dexamethasone 4 MG/ML SDV PO ONE (14:06)
[2025-01-18 17:17] VITALS: BP 128/86; PULSE 77
== END 2025-01-18 17:36 | disposition home or self-care (01) ==
LOC: DL.ED 13:20
DX: K04.7 Periapical abscess without sinus (principal); E07.9 Disorder of thyroid, unspecified; K21.9 Gastro-esophageal reflux disease without esophagitis; Z79.899 Other long term (current) drug therapy; Z88.8 Allergy status to other drugs, medicaments and biological substances; Z86.16 Personal history of COVID-19
CPT/HCPCS: 76536; 99284; A9270; J1100